=== PATIENT | male | born 1935 | race Caucasian/White ===

== ENCOUNTER 2016-06-19 11:50 | Inpatient (IN) | payer MEDICARE, OTHER ==
[~2016-06-19] VITALS: Ht 177.8 cm; Wt 85.6 kg
[~2016-06-19 11:50] MED LIST: BUPIVACAINE/PF-EPI 0.5% 1:200K ONE; HEPARIN 1,000 UNITS/ML, 10ML ONE; LIDOCAINE/PF 1%, 30ML ONE; PAPAVERINE 30 MG/ML, 2ML ONE; PROTAMINE SULFATE 10 MG/ML, 5ML ONE; THROMBIN 20,000 UNIT VIAL TP ONE
[2016-06-19] MEDS ORDERED: LACTATED RINGERS 1,000 ML IV SCH (12:39)
[2016-06-19] MEDS ORDERED: CLOP75TA22 PO (12:44)
[2016-06-19] MEDS ORDERED: ATEN50TA41 PO (12:44)
[2016-06-19] MEDS ORDERED: ESOM40CA PO (12:44)
[2016-06-19] MEDS ORDERED: LISI-170 PO (12:44)
[2016-06-19] MEDS ORDERED: KETO15CR TP (12:44)
[2016-06-19] MEDS ORDERED: SIMV40TA3 PO (12:44)
[2016-06-19] MEDS ORDERED: FENTANYL PF 250 MCG/5ML ONE (13:33)
[2016-06-19] MEDS ORDERED: METOCLOPRAMIDE 5 MG/ML, 2ML IV PRN (14:30)
[2016-06-19] MEDS ORDERED: HYDROmorphone 1 MG/ML, 1ML IV PRN (14:30)
[2016-06-19] MEDS ORDERED: MEPERIDINE/PF 25MG/0.5ML IVPush PRN (14:30)
[2016-06-19] MEDS ORDERED: PROMETHAZINE 25 MG/ML, 1ML IV PRN (14:30)
[2016-06-19] MEDS ORDERED: ONDANSETRON 2MG/ML, 2ML IVPush PRN (14:30)
[2016-06-19] MEDS ORDERED: ACETAMINOPHEN 325 MG TABLET PO PRN ×3 (14:30→21:30)
[2016-06-19] MEDS ORDERED: FENTANYL PF 100 MCG/2ML IV PRN (14:30)
[2016-06-19] MEDS ORDERED: OXYcodone 5 MG/5 ML ORAL.SOL UDC PO PRN (14:30)
[2016-06-19] MEDS ORDERED: PROPOFOL 10 MG/ML, 20ML ONE (14:38)
[2016-06-19] MEDS ORDERED: GLYCOPYRROLATE 0.2MG/1ML ONE (14:38)
[2016-06-19] MEDS ORDERED: CEFAZOLIN 1,000 MG ONE (14:38)
[2016-06-19] MEDS ORDERED: ROCURONIUM 10 MG/ML ONE (14:38)
[2016-06-19] MEDS ORDERED: PHENYLEPHRINE 10 MG/ML ONE (14:38)
[2016-06-19] MEDS ORDERED: BUPIVACAINE/PF-EPI 0.5% 1:200K INFIL ONE (15:08)
[2016-06-19] MEDS ORDERED: LABETALOL 20 MG/4 ML ONE (17:01)
[2016-06-19] MEDS: LABETALOL 5MG/ML, 20ML IV PRN ×4 (17:05→18:20)
[2016-06-19] MEDS ORDERED: FENTANYL PF 100 MCG/2ML ONE (17:26)
[2016-06-19] MEDS ORDERED: hydrALAzine 20 MG/ML, 1ML ONE (18:07)
[2016-06-19] MEDS: hydrALAzine 20 MG/ML, 1ML IV PRN ×2 (18:33→19:03)
[2016-06-19] MEDS ORDERED: ASPIRIN 325 MG TABLET EC PO ONE (19:30)
[2016-06-19] MEDS ORDERED: ONDANSETRON 2MG/ML, 2ML IV PRN (21:30)
[2016-06-19] MEDS ORDERED: morphine SULFATE 10 MG/ML, 1ML IV PRN (21:30)
[2016-06-19] MEDS ORDERED: LABETALOL 5MG/ML, 20ML IVPush PRN ×2 (21:30)
[2016-06-19] MEDS ORDERED: hydrALAzine 20 MG/ML, 1ML IV PRN (22:00)
[2016-06-19] MEDS: HYDROcodone/APAP 5/325 TABLET PO PRN (22:03)
[2016-06-19] MEDS: CEFAZOLIN PMX 2GM/100ML 100 ML IVPB SCH (22:05)
[2016-06-19] MEDS: POTASSIUM CHLORIDE 20 MEQ in LACTATED RINGERS 1,000 ML IV SCH (22:16)
[2016-06-19 23:42] VITALS: BP 123/73
[2016-06-20] MEDS: HYDROcodone/APAP 5/325 TABLET PO PRN ×3 (02:35→12:40)
[2016-06-20 03:58] VITALS: BP 133/75
[2016-06-20] MEDS ORDERED: ATENOLOL 50 MG TABLET PO SCH (06:00)
[2016-06-20] MEDS: CEFAZOLIN PMX 2GM/100ML 100 ML IVPB SCH (06:33)
[2016-06-20] MEDS ORDERED: PANTOPROZOLE 40MG TABLET PO SCH (07:30)
[2016-06-20] MEDS: POTASSIUM CHLORIDE 20 MEQ in LACTATED RINGERS 1,000 ML IV SCH (07:36)
[2016-06-20 07:54] VITALS: BP 128/60
[2016-06-20] MEDS ORDERED: ASPIRIN 325 MG TABLET EC PO SCH (09:00)
[2016-06-20] MEDS ORDERED: LISINOPRIL 20 MG TABLET PO SCH (09:00)
[2016-06-20 14:43] VITALS: BP 126/67
[2016-06-20] MEDS ORDERED: ASPI-621 PO (15:46)
[2016-06-20] MEDS ORDERED: HYDR-3240 PO (15:47)
[2016-06-20] MEDS ORDERED: PERICOLACE PO (15:48)
[2016-06-20] MEDS ORDERED: ATORVASTATIN 20 MG TABLET PO SCH (21:00)
== END 2016-06-20 16:15 | disposition home or self-care (01) | DRG 39 ==
LOC: ORIP 11:54 → 4NOR 20:25 → DCLOUNGE 06-20 15:43
PROVIDERS: ADMIT Surgery; ATTEND Surgery
PROC: 03CK0ZZ Extirpation of Matter from Right Internal Carotid Artery, Open Approach (ICD-10-PCS; 2016-06-19)
PROC: 03CM0ZZ Extirpation of Matter from Right External Carotid Artery, Open Approach (ICD-10-PCS; 2016-06-19)
PROC: 03CH0ZZ Extirpation of Matter from Right Common Carotid Artery, Open Approach (ICD-10-PCS; principal; 2016-06-19 14:30)
DX: I65.21 Occlusion and stenosis of right carotid artery (principal); I10 Essential (primary) hypertension; E78.5 Hyperlipidemia, unspecified; L89.151 Pressure ulcer of sacral region, stage 1; Z82.49 Family history of ischemic heart disease and other diseases of the circulatory system; I69.393 Ataxia following cerebral infarction; I69.328 Other speech and language deficits following cerebral infarction
CPT/HCPCS: 36415; 86850; 86900; C1729; J0690; J1644; J2704; J2720; J3010; J3480; J3490; J0360; J2370; J2440; J7120

== ENCOUNTER 2020-03-02 15:46 | Emergency (ER) | payer MEDICARE, OTHER ==
[~2020-03-02] VITALS: Ht 177.8 cm; Wt 105.0 kg
[~2020-03-02 15:46] MED LIST changes: +ASPI81TA45 PO; +ATEN50TA41 PO; -BUPIVACAINE/PF-EPI 0.5% 1:200K ONE; +CLOP75TA52 PO; +ESOM40CA PO; -HEPARIN 1,000 UNITS/ML, 10ML ONE; +HYDR-3240 PO; +KETO15CR17 TP; -LIDOCAINE/PF 1%, 30ML ONE; +LISI-170 PO; -PAPAVERINE 30 MG/ML, 2ML ONE; +PERICOLACE PO; -PROTAMINE SULFATE 10 MG/ML, 5ML ONE; +SIMV40TA20 PO; -THROMBIN 20,000 UNIT VIAL TP ONE
--- NOTE | 2020-03-02 16:30 | NUR ---
IV started. Blood collected and sent to lab.
[2020-03-02 17:14] LABS: ALBUMIN 3.8 g/dL (3.4-5.0); ANION GAP 5 mmol/L (5-15); BASOPHILS % (AUTO) 1 % (0-1); CALCIUM 8.9 mg/dL (8.5-10.1); CHLORIDE 105 mmol/L (98-107); EOSINOPHILS % (AUTO) 1 % (1-7); LYMPHOCYTES % (AUTO) 26 % (22-44); MEAN CORPUSCULAR HEMOGLOBIN 34.5 pg (27.5-34.5); MEAN PLATELET VOLUME 8.4 fL (7.4-10.4); MONOCYTES % (AUTO) 10 % (2-9); NEUTROPHILS % (AUTO) 62 % (42-75); PLATELET COUNT 253 x10^3/uL (130-400); RED BLOOD COUNT 3.83 x10^6/uL (4.38-5.82); RED CELL DISTRIBUTION WIDTH 14.1 % (9.4-14.8)
[2020-03-02 17:20] LABS: ALANINE AMINOTRANSFERASE 49 U/L (12-78); ALKALINE PHOSPHATASE 104 U/L (45-117); BILIRUBIN,TOTAL 1.2 mg/dL (0.2-1.0); CREATININE 1.61 mg/dL (0.7-1.3); MD NO; TOTAL PROTEIN 8.2 g/dL (6.4-8.2); TROPONIN I < 0.015 ng/mL (0.000-0.045)
[2020-03-02] MEDS ORDERED: SODIUM CHLORIDE 0.9% 1,000ML IVBOLUS ONE (17:30)
--- NOTE | 2020-03-02 17:38 | NUR ---
Assisted pt to bedside urinal. UA collected and tubed to lab.
[2020-03-02 17:45] LABS: MICROSCOPIC NOT IND
--- NOTE | 2020-03-02 18:14 | NUR ---
RN at bedside. Pt denies needs at this time.
--- NOTE | 2020-03-02 18:37 | NUR ---
Social work consult in. Pt then being DC'd home. Pt feels okay about going home. This RN is calling Narciso Chery, pt.'s friend, who agreed to give pt a ride home.
--- NOTE | 2020-03-02 18:46 | NUR ---
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
--- NOTE | 2020-03-02 19:02 | NUR ---
Waiting for social worker assistant to see pt.
--- NOTE | 2020-03-02 19:22 | NUR ---
Assisting pt to bedside urinal.
--- NOTE | 2020-03-02 19:23 | NUR ---
well service derrick worker at bedside.
--- NOTE | 2020-03-02 19:37 | NUR ---
Social work putting in consult for home health to come see pt. in [place]. Pt.'s IV removed.
[2020-03-02 19:38] VITALS: BP 177/88
== END 2020-03-02 19:53 | disposition home or self-care (01) ==
LOC: ED 18:36
DX: E86.0 Dehydration (principal); G20 Parkinson's disease; I10 Essential (primary) hypertension; R53.1 Weakness
CPT/HCPCS: 36415; 80053; 81003; 83605; 84484; 85025; 87040; 96360; 99283; J7030